=== PATIENT | female | born 1965 | race Caucasian/White ===

== ENCOUNTER → 2017-12-19 | Outpatient (CLI) | payer OTHER ==
[~2017-12-19] MED LIST: CEPH500 PO; IMIT50TA PO; MOTR200T PO; PERC5TAB12 PO
[2017-12-19 09:44] LABS: AUTOMATED NEUTROPHIL # 3.1 TH/MM3 (1.8-7.7); BASOPHIL % 0.4 % (0.0-2.0); EOSINOPHIL # 0.1 TH/MM3 (0-0.4); EOSINOPHIL % 1.9 % (0.0-4.0); HEMATOCRIT 42.1 % (35.0-46.0); LYMPH % 42.8 % (9.0-44.0); LYMPHOCYTE # 2.7 TH/MM3 (1.0-4.8); MEAN CELL VOLUME 85.8 FL (80.0-100.0); MEAN CORPUSCULAR HEMOGLOBIN 28.5 PG (27.0-34.0); MEAN CORPUSCULAR HGB CONC 33.3 % (32.0-36.0); MEAN PLATELET VOLUME 8.6 FL (7.0-11.0); MONO % 6.6 % (0.0-8.0); MONOCYTE # 0.4 TH/MM3 (0-0.9); NEUT % 48.3 % (16.0-70.0); PLATELET COUNT 257 TH/MM3 (150-450); RED BLOOD COUNT 4.91 MIL/MM3 (4.00-5.30); RED CELL DISTRIBUTION WIDTH 13.9 % (11.6-17.2); WHITE BLOOD COUNT 6.3 TH/MM3 (4.0-11.0)
[2017-12-19 10:01] LABS: PROTHROMBIN TIME - PATIENT 10.2 SEC (9.8-11.6)
[2017-12-19 10:08] LABS: ALBUMIN 3.9 GM/DL (3.4-5.0); AST (GOT) 6 U/L (15-37); BICARBONATE 25.8 MEQ/L (21.0-32.0); BLOOD UREA NITROGEN 13 MG/DL (7-18); CALCIUM 9.7 MG/DL (8.5-10.1); CHLORIDE 104 MEQ/L (98-107); CREATININE 0.96 MG/DL (0.50-1.00); GLOMERULAR FILTRATION RATE 61 ML/MIN (>89); GLUCOSE,FASTING 94 MG/DL (74-99); SODIUM (NA) 140 MEQ/L (136-145)
[2017-12-19 10:10] LABS: ALT (GPT) 22 U/L (10-53)
[2017-12-19 10:11] LABS: ALKALINE PHOSPHATASE 87 U/L (45-117); TOTAL BILIRUBIN ADULT 0.5 MG/DL (0.2-1.0); TOTAL PROTEIN 7.4 GM/DL (6.4-8.2)
--- NOTE | 2017-12-19 10:22 | RADRPT ---
EXAM DATE: 12/19/2017 10:16 AM EDT AGE/SEX: 52 years / Female INDICATIONS: Evaluate for pneumonia, pneumothorax or communicable disease. Pre op Cystoscopy. CLINICAL DATA: This is the patient's initial encounter. Patient reports that signs and symptoms have been present for 1 day and indicates a pain score of 0/10. MEDICAL/SURGICAL HISTORY: None. None. COMPARISON: No prior exams available for comparison. FINDINGS: PA and lateral views of the chest demonstrate the lungs to be symmetrically aerated without evidence of mass, infiltrate or effusion. The cardiomediastinal contours are unremarkable. Osseous structures are intact. CONCLUSION: No acute cardiopulmonary findings identified. Electronically signed by: Brennon Moon MD 12/19/2017 10:21 AM EDT
--- NOTE | 2017-12-19 18:25 | EKG ---
Date Performed: 12/19/2017 Time Performed: 09:35:18 PTAGE: 52 years EKG: Sinus rhythm LOW QRS VOLTAGE IN PRECORDIAL LEADS BORDERLINE ECG Since the PREVIOUS TRACING , no significant change noted PREVIOUS TRACIN01/30/2016 [id number] DOCTOR: Melissa Sesay Interpretating Date/Time 12/19/2017 18:24:22
== END ==
LOC: CPRE 09:16
PROVIDERS: ATTEND Obstetrics & Gynecology Gynecologic Oncology
DX: Z01.810 Encounter for preprocedural cardiovascular examination (principal); Z01.811 Encounter for preprocedural respiratory examination; Z01.812 Encounter for preprocedural laboratory examination; D06.9 Carcinoma in situ of cervix, unspecified; R94.31 Abnormal electrocardiogram [ECG] [EKG]
CPT/HCPCS: 36415; 71046; 80053; 85025; 85610; 85730; 93005

== ENCOUNTER → 2017-12-25 | Day surgery (SDC) | payer OTHER ==
[~2017-12-25] VITALS: Ht 162.6 cm; Wt 82.4 kg
[~2017-12-25] MED LIST changes: -CEPH500 PO; +CHLORHEXIDINE GLUCONATE 2 % 1 PACK (2 CLOTHS) TOPICAL PRN; +DEXAMETHASONE SOD PHOS 4 MG/ML VIAL IV ONE; +DO NOT ADM ANY ANTICOAGULANT DRUGS PRN; +KETOROLAC TROMETHAMINE 30 MG/ML (IVP) VIAL IV PUSH ONE; +LACTATED RINGER'S 1000 ML IV PRN; +LIDOCAINE 1%/EPINEPHrine 1:100,000 SOLN 30 ML VIAL ONE; +LIDOCAINE HCL 1% PF 5 ML SYRINGE OTHER ONE; +METOPROLOL TARTRATE 25 MG TAB PO PRN; +MIDAZOLAM HCL 2 MG/2 ML VIAL ONE; -MOTR200T PO; +ONDANSETRON HCL 4 MG/2 ML VIAL IV ONE; -PERC5TAB12 PO; +POVIDONE IODINE 5% (ANTISEPSIS KIT) 4 APPLICATIONS EACH NARE PRN; +PROPOFOL 200 MG/20 ML AMP IV ONE; +SODIUM CHLORID 0.9% 500 ML IV PRN; +VASOPRESSIN 20 UNITS/ML VIAL ONE
--- NOTE | 2017-12-25 13:21 | MP ---
cc: Sugar Kim MD BrunoAlma christopher,Jose NICOLE DATE OF OPERATION: 12/25/2017 PREOPERATIVE DIAGNOSES: 1. Status post hysterectomy for cervical dysplasia. 2. Pap smear of the vaginal apex suggesting squamous cell carcinoma. POSTOPERATIVE DIAGNOSES: 1. Status post hysterectomy for cervical dysplasia. 2. Pap smear of the vaginal apex suggesting squamous cell carcinoma. PROCEDURE PERFORMED: Examination under anesthesia, colposcopy and then excision of polypoid growth from the right vaginal apex, multifocal biopsies from the left upper vagina, cystoscopy, proctoscopy. SURGEON: Sugar Kim MD BOW MACHINE OPERATOR: Katlyn congressional assistant. ANESTHESIA: Laryngeal mask. ESTIMATED BLOOD LOSS: Less than 20 mL HISTORY: A 52-year-old female who had a previous hysterectomy for cervical carcinoma in situ. She is asymptomatic, but routine Pap smear was obtained, which was interpreted as squamous cell carcinoma. She has been counseled regarding the need for further evaluation and information. She is seen in the preop holding area again with her , where the findings are reviewed. Plan of care discussed. Imaging which included PET CT scan was negative and she presents now for surgical evaluation. FINDINGS: On exam under anesthesia, there was no appreciably enlarged inguinal lymph nodes. External genitalia without mass or lesion. The uterus and cervix are surgically absent. There is mild relaxation to the vaginal cuff with a mild cystocele and rectocele. The right vaginal apex was approximately 1 cm raised polypoid tissue, grossly suggestive of granulation tissue. On bimanual exam, there is no other obvious nodularity or mass effect. There is no obvious parametrial thickening or nodularity. On colposcopic exam, there is a fairly widespread area of acetowhite epithelial changes with increased vascular changes that appeared to be at least consistent with carcinoma in situ and the possibility of microscopic invasion. The area of abnormality covers estimated 7-8 cm, includes the left upper vagina and extending down to include the upper one-third, possibly the upper 1/2 of the ventral vaginal wall, less extension posteriorly, but at least the upper one-third along the left vaginal wall. The abnormalities crossed the midline, but did not extend to the right vaginal apex. Palpably, the mucosa is smooth. Frozen section analysis of the polypoid growth in the right vaginal apex was consistent with granulation tissue. Other specimens were sent for permanent histopathologic analysis. On cystoscopy, the bladder mucosa is smooth circumferentially. There was no mass or polyp, no extrinsic compression. The ureteral ostia are easily visualized with good efflux of urine bilaterally. On rigid proctosigmoidoscopy to 18 cm, the mucosa appears normal. There was no obvious mass, polyp, or other abnormalities detected. DESCRIPTION OF PROCEDURE: She was taken to the operating room and placed in dorsal lithotomy position, after laryngeal mask anesthesia was administered. A timeout was undertaken. She was identified by site recognition and hospital ID bracelet and the proposed procedure was reviewed and confirmed. Exam under anesthesia was performed with findings as described above. Dilute acetic acid was applied to all surfaces of the vagina and vulva and colposcopy was carried out with findings as described above. There were no abnormal lesions seen on the external genitalia. She was prepped and draped in sterile fashion. Excision of the right apex polypoid tissue was carried out with sharp dissection, it had a narrow stalk in the right corner of the vagina. This was sent for frozen section and eventually came back granulation tissue and this attachment site was rendered hemostatic with Monsel's solution. Three transportation services representative areas where the colposcopic appearance was most notably abnormal were marked with surgical marker. Lidocaine, epinephrine were injected and small excisional biopsies were carried out using a 15 blade scalpel. Each of these biopsies were combined together as upper vaginal biopsies. Each of these sites were closed with interrupted 3-0 Vicryl sutures, which rendered the areas hemostatic and well approximated, and there was no defects below the submucosal tissue. Cystoscopy was performed using a 30-degree scope with findings as described above. The bladder was drained and the proctosigmoidoscopy was performed with findings as described above. The scope was withdrawn. Change of sterile gloves was undertaken. Vagina was inspected. Small bleeders were rendered hemostatic with topical Monsel's solution. Sites were otherwise hemostatic. There were no remaining foreign objects in the vagina. Preliminary and final counts were correct. She was returned to dorsal supine position and was pending reversal of anesthesia when I left the operating room to precede her to the postanesthesia care unit. MD LYNDA Campbell/IRON , 12:42 PM , 01:20 PM
[2017-12-25 14:01] VITALS: BP 112/74; PULSE 72; RESP 18; TEMP 97.2; O2SAT 96
== END | disposition home or self-care (01) ==
LOC: HSDC 09:03
PROVIDERS: ATTEND Obstetrics & Gynecology Gynecologic Oncology
DX: D07.2 Carcinoma in situ of vagina (principal); G43.909 Migraine, unspecified, not intractable, without status migrainosus; H40.9 Unspecified glaucoma
CPT/HCPCS: 00940; 45300; 52000; 57135; 57421; 86850; 86900; 86901; 88305; 88331; J1100; J1885; J2250; J2405; J3010